=== PATIENT | male | born 1990 | race Two or more races ===

== ENCOUNTER 2020-12-19 21:48 | Emergency (ER) | payer SELFPAY ==
[~2020-12-19] VITALS: Ht 170.2 cm; Wt 91.0 kg
[2020-12-19 21:51] VITALS: BP 134/87
[2020-12-19] MEDS ORDERED: FLUORESCEIN OPHTHALMIC 1 MG STRIP ONE (22:22)
[2020-12-19] MEDS ORDERED: PROPARACAINE OPHTH 0.5%, 15ML ONE (22:22)
[2020-12-19] MEDS ORDERED: FLUORESCEIN OPHTHALMIC 1 MG STRIP EACHEYE ONE (22:30)
[2020-12-19] MEDS ORDERED: PROPARACAINE OPHTH 0.5%, 15ML EACHEYE ONE (22:30)
--- NOTE | 2020-12-19 23:28 | NUR ---
Patient/Caregiver given discharge instructions and they have confirmed that they understand the instructions. Patient ambulatory with steady gait.
== END 2020-12-19 23:32 | disposition home or self-care (01) ==
LOC: ED 23:00
DX: T15.02XA Foreign body in cornea, left eye, initial encounter (principal); X58.XXXA Exposure to other specified factors, initial encounter; Y93.89 Activity, other specified; Y92.89 Other specified places as the place of occurrence of the external cause; Y99.8 Other external cause status
CPT/HCPCS: 65222; 99284